=== PATIENT | male | born 1965 | race Caucasian/White ===

== ENCOUNTER → 2017-01-06 | Outpatient (CLI) | payer OTHER ==
--- NOTE | 2017-01-09 11:08 | DIAGNOSTIC IMAGING REPORT ---
PROCEDURE: MR UPPER EXTREMITY W/O CONT-LT; FAILED EXAM INDICATION: LEFT SHOULDER PAIN; DECREASED ROM FINDINGS: Study is suboptimal due to motion despite multiple repeat sequences (reportedly large body habitus). Limited images suggest severe tendinosis or tear of the ventral rotator cuff with calcific tendinosis of the lateral rotator cuff, and possible labral tear. IMPRESSION: 1. Failed examination (MRI left shoulder). 2. Repeat attempt at "open" MRI ([facility]) is recommended. 3. Findings discussed with HERNANDO Negron.
--- NOTE | 2017-01-09 11:08 | DIAGNOSTIC IMAGING REPORT ---
PROCEDURE: MR UPPER EXTREMITY W/O CONT-LT; FAILED EXAM INDICATION: LEFT SHOULDER PAIN; DECREASED ROM FINDINGS: Study is suboptimal due to motion despite multiple repeat sequences (reportedly large body habitus). Limited images suggest severe tendinosis or tear of the ventral rotator cuff with calcific tendinosis of the lateral rotator cuff, and possible labral tear. IMPRESSION: 1. Failed examination (MRI left shoulder). 2. Repeat attempt at "open" MRI ([facility]) is recommended. 3. Findings discussed with HERNANDO Negron.
== END ==
LOC: MRI SRH 09:31
DX: M25.512 Pain in left shoulder (principal); M75.102 Unspecified rotator cuff tear or rupture of left shoulder, not specified as traumatic; Z53.9 Procedure and treatment not carried out, unspecified reason